=== PATIENT | female | born 1990 | race Caucasian/White ===

== ENCOUNTER 2025-04-07 23:54 | Emergency (ER) | payer SELFPAY ==
[~2025-04-07] VITALS: Ht 165.1 cm; Wt 86.2 kg
[2025-04-08 00:53] LABS: LEUKOCYTE ESTERASE ,URINE SMALL (NEGATIVE); PROTEIN,URINE DIPSTICK NEGATIVE (NEGATIVE); URINE UROBILINOGEN 0.2 mg/dL (0.2 - 1)
[2025-04-08 00:55] LABS: EPITHELIAL CELLS,URINE MANY /LPF
[2025-04-08 00:56] LABS: PREGNANCY TEST, URINE NEGATIVE (NEGATIVE)
[2025-04-08 01:42] VITALS: PULSE 76; RESP 16; TEMP 98.3; O2SAT 100
[2025-04-08] MEDS ORDERED: ENULOSE10 GM/15 M PO (01:42)
== END 2025-04-08 01:57 | disposition home or self-care (01) ==
LOC: ER 04-08 00:09
DX: K59.00 Constipation, unspecified (principal)
CPT/HCPCS: 74018; 81001; 81025; 99283